=== PATIENT | female | born 1985 | race Caucasian/White ===

== ENCOUNTER 2017-11-04 06:35 | Inpatient (IN) | payer OTHER ==
[2017-11-04] MEDS ORDERED: Oxytocin 30 UNIT 30 UNITS/500 ML BAG IV ONE ×2 (07:02→08:27)
[2017-11-04] MEDS: Lactated Ringer's 1,000 ML IV SCH ×2 (08:00→19:33)
[2017-11-04 08:35] LABS: BASO % 0.4 % (0.0-2.0); EOS # 0.1 K/uL (0.0-0.7); HEMOGLOBIN 13.4 g/dL (11.0-16.0); LYMPH # 1.9 K/uL (1.0-4.3); LYMPH % 32.2 % (20.0-40.0); MEAN CELL VOLUME 94.5 fL (81.0-99.0); MEAN CORPUSCULAR HEMOGLOBIN 32.6 pg (27.0-31.0); MEAN CORPUSCULAR HGB CONC 34.4 g/dL (33.0-37.0); MEAN PLATELET VOLUME 14.3 fL (7.2-11.7); MONO # 0.6 K/uL (0.0-0.8); MONO % 9.5 % (0.0-10.0); NEUT # 3.3 K/uL (1.8-7.0); NEUT % 55.9 % (50.0-75.0); NRBC % 0.1 % (0.0-2.0); RBC 4.11 Mil/uL (3.80-5.20); RED CELL DISTRIBUTION WIDTH 13.1 % (11.5-14.5); WHITE BLOOD COUNT 5.9 K/uL (4.8-10.8)
--- NOTE | 2017-11-04 10:07 | OBHP ---
Datetime: 11/04/2017 10:00 IP Adm Impression: Term, intrauterine IP Admit Plan: Admit to unit Admit Comment, IP Provider: @ 40.3wks GA YUNIOR 11/01/17 c/o ctx pain that started last night nowe every 5 min incresaign intesnty and freqeuncy, 10/15. 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 PMH: Denies PSH Denies FHX: non contbiyuory MEDS: PNV NKDA SHX: negative x 3 A/P @ 40.3 wks GA augmentation of labor with oligohydramnios admit to L+D npo, ivf admissin labs conto to cand emf analgesia prn pritiocn as per protocol Pelvic Type - PN: Adequate Extremities - PN: Normal Abdomen - PN: Normal Back - PN: Normal Breast - PN: Normal Lungs - PN: Normal Heart - PN: Normal Thyroid - PN: Normal Neurologic - PN: Normal HEENT - PN: Normal General - PN: Normal Presentation-Admit: Vertex Membranes, Provider: Intact Contraction Comments Provider: q 5 min Comments, ACOG Physical Exam: Bedside US vtx lorraine 4.7cm Gestation - Est Wks by US: 40.3 IP Hx Assessment: The History has been Reviewed and is Current EGA AdmitDate IP: 40.3 Vital Signs Provider: Reviewed; Within Normal Limits IP Indication for Induction: Oligohydramnios IP Chief Complaint: Uterine contractions NICHD Decel Fetus A IP Provider: None Dilatation, Provider: 3-4 Effacement, Provider: 60 Station, Provider: -2 Genitourinary Exam: Normal DTRs - PN: Normal
[2017-11-04 10:31] LABS: SQUAMOUS EPITHIAL < 1 /hpf (0-5); URINE BACTERIA RARE (<OCC); URINE BILIRUBIN NEGATIVE (NEGATIVE); URINE BLOOD NEGATIVE (NEGATIVE); URINE CLARITY Clear (Clear); URINE COLOR Colorless (YELLOW); URINE GLUCOSE (UA) NORMAL (Normal); URINE LEUKOCYTE ESTERASE NEG Leu/uL (Negative); URINE PROTEIN NEGATIVE (NEGATIVE); URINE UROBILINOGEN NORMAL mg/dL (0.2-1.0)
[2017-11-04 13:37] LABS: BASO % 0.3 % (0.0-2.0); EOS % 0.2 % (0.0-4.0); HEMOGLOBIN 14.5 g/dL (11.0-16.0); LYMPH # 2.2 K/uL (1.0-4.3); MEAN CELL VOLUME 94.7 fL (81.0-99.0); MEAN CORPUSCULAR HEMOGLOBIN 32.5 pg (27.0-31.0); MEAN CORPUSCULAR HGB CONC 34.4 g/dL (33.0-37.0); MEAN PLATELET VOLUME 13.9 fL (7.2-11.7); MONO # 0.6 K/uL (0.0-0.8); MONO % 5.6 % (0.0-10.0); NEUT # 7.3 K/uL (1.8-7.0); NEUT % 71.9 % (50.0-75.0); NRBC % 0.1 % (0.0-2.0); RBC 4.45 Mil/uL (3.80-5.20)
[2017-11-04 13:46] LABS: WHITE BLOOD COUNT 10.2 K/uL (4.8-10.8)
[2017-11-04] MEDS ORDERED: Propofol 10 mg/ml Inj (20 ML) ONE (14:02)
[2017-11-04] MEDS ORDERED: ceFAZolin IV 2 gm in Dextrose 2 GM/50 ML BAG IVPB ONE ×2 (14:05→14:08)
[2017-11-04] MEDS ORDERED: Sodium Citrate/Citric Acid 15 ml Sol PO STA (14:06)
[2017-11-04] MEDS ORDERED: Sodium Citrate/Citric Acid 15 ml Sol ONE (14:08)
[2017-11-04] MEDS ORDERED: Succinylcholine Chloride 20 mg/ml Syr (5 ml) IV ONE (14:09)
[2017-11-04] MEDS ORDERED: Oxytocin 20 units in LR 2,000 ML IV ONE (14:11)
--- NOTE | 2017-11-04 14:20 | OBPN ---
Datetime: 11/04/2017 14:11 IP Progress Impression: Normal progression of labor; Non-reassuring heart rate IP Progress Plan: Continue present management Membranes, Provider: Ruptured FHR - Baseline A Provider: 130 Gestation - Est Wks by US: 40.3 Presentation-Admit: Vertex IP Progress Note Comment: Pt seen and examined VSS EMF: 130/mod ag prlonged decleration 2-6 min TOOC: q 2-3 min A/P @ 40+ wks in acibve labor iwth Cat II scalp stimualtin left latera ldebucubit ivh oxygen possibel cesearen section dw patient Vital Signs Provider: Reviewed; Within Normal Limits FHR Category Provider Fetus A: Category II NICHD Variability Prov Fetus A: Moderate 6-25bpm Dilatation, Provider: 9 Effacement, Provider: 100 Station, Provider: 0 NICHD Decel Fetus A IP Provider: Late; Prolonged Datetime: 11/04/2017 10:00 Contraction Comments Provider: q 5 min
--- NOTE | 2017-11-04 16:41 | OBPN ---
Datetime: 11/04/2017 16:37 IP Progress Plan: Continue present management Membranes, Provider: Ruptured FHR - Baseline A Provider: 125 IP Progress Note Comment: pt seen adn examiend for progression of labor pitoicn dc due ot categoary ii pticon retarted conttoc oand emf Vital Signs Provider: Reviewed; Within Normal Limits FHR Category Provider Fetus A: Category I NICHD Variability Prov Fetus A: Moderate 6-25bpm Dilatation, Provider: 9 Effacement, Provider: 100 Station, Provider: 0 NICHD Decel Fetus A IP Provider: None
[2017-11-04] MEDS ORDERED: Oxytocin 10 Units/ml Inj ONE (17:40)
[2017-11-04] MEDS ORDERED: Morphine 4 MG/ML VIAL ONE (18:15)
[2017-11-04] MEDS ORDERED: Oxycodone/Acetaminophen 5/325 mg Tab PO PRN (18:28)
--- NOTE | 2017-11-04 18:36 | OBDS ---
DELIVERY PERSONNEL Delivery Doctor: Lupis Bonilla MD Scrub Nurse: Dejah Vang Machine Stitcher: Jackie Winters RN Resident: Ness Nunez MATERNAL INFORMATION Delivery Anesthesia: General Medications in Delivery: Pitocin 40 units in 1000LR Estimated Blood Loss (ml): 800 Placenta Cultured: Yes Maternal Complications: None Provider Comments: primary low transvesre ceseare section non reassring heart tracing/ bradycardia live male agpars 9,9 weight of 7bl 5 ounces pediatricin present for dleiveyr LABOR SUMMARY EDC: 11/01/2017 00:00 No. Babies in Womb: 1 Attempted: No Labor Anesthesia: None LABOR INFORMATION Reason for Induction: Not Applicable Onset of Labor: 11/04/2017 07:25 Oxytocin: Augmentation Group B Beta Strep: Negative Antibiotics # of Doses: 1 Antibiotics Time of Last Dose: 1728 Steroids Given: None Reason Steroids Not Administered: Not Applicable MEMBRANES Membranes Rupture Method: Artificial Rupture of Membranes: 11/04/2017 10:40 Length of Rupture (hrs): 6.93 Amniotic Fluid Color: Clear Amniotic Fluid Amount: Scant Amniotic Fluid Odor: Normal STAGES OF LABOR Stage 3 hrs: 0 Stage 3 min: 1 Total Time in Labor hrs: 10 Total Time in Labor min: 12 CSECTION DELIVERY Primary Indication: Nonreassuring Status CSection Urgency: Emergency CSection Incidence: Primary Labor: Labor Elective: Nonelective CSection Incision: Lower Uterine Transverse BABY A INFORMATION Infant Delivery Date/Time: 11/04/2017 17:36 Method of Delivery: Born in Route : No : N/A Forceps: N/A Vacuum Extraction: N/A Shoulder Dystocia : No SHOULDER DYSTOCIA BABY A Infant Delivery Date/Time: 11/04/2017 17:36 PRESENTATION/POSITION BABY A Presentation: Cephalic Cephalic Presentation: Vertex Vertex Position: Right Occipital Posterior Breech Presentation: N/A PLACENTA INFORMATION BABY A Placenta Delivery Time : 11/04/2017 17:37 Placenta Method of Delivery: Manual Removal Placenta Status: Delivered SCORES BABY A Heart Rate 1 min: >100 bpm Resp Effort 1 min: Good Cry Reflex Irritability 1 min: Cough or Sneeze or Pulls Away Muscle Tone 1 min: Active Motion Color 1 min: Body Currie, Extremities Blue Resuscitation Effort 1 min: Tactile Stimulation SCORE 1 MIN: 9 Heart Rate 5 min: >100 bpm Resp Effort 5 min: Good Cry Reflex Irritability 5 min: Cough or Sneeze or Pulls Away Muscle Tone 5 min: Active Motion Color 5 min: Body Currie, Extremities Blue Resuscitation Effort 5 min: N/A SCORE 5 MIN: 9 INFANT INFORMATION BABY A Gestational Age at Delivery: 40.3 Gestational Status: Post-term Infant Outcome : Liveborn Condition : Stable Infant Sex: Male IDENTIFICATION/MEDS BABY A ID Band Number: [id number] ID Band Location: Left Leg; Left Arm Sensor Applied: Yes Sensor Number: [id number] Sensor Location : Cord Clamp Vitamin K Given : Not Given Erythromycin Given: Not Given WEIGHT/LENGTH BABY A Birthweight (gms): 3310 Weight (lb): 7 Weight (oz): 5 Length Inches: 20.50 Length cms: 52.1 CORD INFORMATION BABY A No. Cord Vessels: 3 Nuchal Cord : Tight nuchal and ARound the body Cord Blood Taken: Yes Suction: Mouth; Nose ASSESSMENT BABY A Infant Complications: None Physical Findings at Delivery: Within Normal Limits Infant Respirations: Appears Normal Aircraft Lay Out Worker/ALS Called : Yes Care By: Transferred To: Nursery
--- NOTE | 2017-11-04 18:50 | PCM.SURG1 ---
Surgeon's Initial Post Op Note - Surgeon's Notes Surgeon: Arabella Bonilla MD Manager Freelance: Manasa Owens MD Type of Anesthesia: General Mask Pre-Operative Diagnosis: Non reassuring heart tracing, bradycardia, term intrauterine Operative Findings: live male infant rop position tight nuchal and body x 1 reduced, apgars 9,9 normal appearing uterus, tubes and ovaries. lieutenant/deputy present for delivery. Dr Lili Owens was surgical assistnat and prestn for entire case and essential in gaingn entry, retraction, epxoure, holding the bladder blade, closing all layers and was present for entire case. Post-Operative Diagnosis: same as above Operation Performed: Primary low transvesre ceseaern section Specimen/Specimens Removed: placenta Estimated Blood Loss: EBL {In ML}: 800 Blood Products Given: N/A Drains Used: No Drains Post-Op Condition: Good Date of Surgery/Procedure: 11/04/17 Time of Surgery/Procedure: 18:00
[2017-11-04] MEDS ORDERED: Morphine 4 MG/ML VIAL IVP PRN (20:00)
[2017-11-04] MEDS: Simethicone 80 mg Chewtab PO SCH (21:42)
--- NOTE | 2017-11-05 00:09 | OBPPN ---
Datetime: 11/05/2017 00:05 PP Pain Prov: Within normal limits PP Nausea Prov: Denies PP Flatus Prov: No PP BM Prov: No PP Breasts Prov: Normal PP Heart Prov: Normal PP Lungs Prov: Normal PP Abdomen/Uterus Prov: Normal PP Lochia Prov: Normal PP Vulva/Perineum Prov: Normal PP CVA Tenderness Prov: Normal PP Extremities Prov: Normal PP C/S Incision Prov: Normal PP Progress Prov: Normal PP Impression Prov: Normal progression PP Plan Prov: Continue present management PP Progress Note Prov: pt seen and examiend reprots pain andc rampign alleviated with precorcet. pt ambuating voiding passing minimal flatus, tolerted regular diet, denies any fever, chills, nasue, vo mitnv, cp, sob. pt isbreat feedign denies any feeling of sadnes or depression. pt denies any lighthea dnes,d izzyness. VSS PE GEN NAD AA ox 3 RESP: CTAB?l CVR: RRR, +S1/S2 ABD: soft, NT, nimally disteneded, no guarding, no reboudn tendnerr, no rigidty, Fundus firm at le humberto of umbilicis INCSION C??DI healing well VE: minimal lochia, non foul smelling EXT: No calf tendnerss b/l, engaitve juan's sign A/P s/p PLTCS POD #1 am labs pain manamgnet bowel regimen encourage ambation and breast feeding Vital Signs Provider PP: Reviewed; Within Normal Limits
[2017-11-05] MEDS: ceFAZolin IV 2 gm in Dextrose 2 GM/50 ML BAG IVPB SCH ×3 (01:34→17:37)
[2017-11-05] MEDS: Lactated Ringer's 1,000 ML IV SCH (01:37)
--- NOTE | 2017-11-05 07:39 | OP ---
PROCEDURE DATE: 11/04/2017 SURGEON: Arabella Bonilla MD SCREED OPERATOR: Lili Owens DO TYPE OF ANESTHESIA: General mask. ANESTHESIOLOGIST: Dr. Wilson PREOPERATIVE DIAGNOSES: Term intrauterine , nonreassuring heart rate with bradycardia. OPERATIVE FINDINGS: A live male , ROP presentation, tight nuchal cord and body x1 reduced, Apgars 9 and 9, normal-appearing uterus, tubes, and ovaries bilaterally. Gastroenterologist present for delivery. Dr. Lili Owens was the surgical corsetier present for the entire case and essential in gaining entry, retraction, exposure, holding the bladder while closing all layers and was present for the entire case. POSTOPERATIVE DIAGNOSIS: Term intrauterine , nonreassuring heart rate with bradycardia. OPERATION PERFORMED: Primary low-transverse section. SPECIMEN REMOVED: Placenta. ESTIMATED BLOOD LOSS: 800 mL. BLOOD PRODUCTS: None. COMPLICATIONS: None. DESCRIPTION OF PROCEDURE: The patient is a G1, P0, who was 40-plus weeks who presented in labor also with oligohydramnios. The patient subsequently was admitted for of labor. The patient progressed, fully dilated and was having decelerations. The patient was given oxygen, left lateral resuscitation with Pitocin. The patient had a prolonged deceleration and also bradycardia. Risks, benefits, alternatives, and indications of primary low transverse section were discussed with the patient. The patient was taken to operating room where she was given general anesthesia. The patient was then prepped and draped in the usual normal sterile fashion. The patient was given preoperative prophylactic antibiotic. Pfannenstiel skin incision was made with a scalpel, carried down to the underlying fascia with the scalpel. The rectus muscles were then bluntly in the midline. The peritoneum was identified, entered in the clear space. The incision was extended laterally and superiorly until there was good visualization of the bladder. The lower uterine segment was incised in transverse fashion with the use of the scalpel. The incision was extended laterally bluntly. The surgeon's hand entered the uterine cavity. The infant's head was brought up through the uterine incision. The 's head was delivered atraumatically followed by delivery of the shoulders, followed by the body. The umbilical cord was tight and reduced. Oral and nasal passages were bulb suctioned. The umbilical cord was clamped and cut. The baby was handed off to the awaiting catering sales manager. Cord blood and cord gases were collected and sent x2. The placenta was then delivered manually. The uterus was then exteriorized and was cleared of all clots and debris. The uterine incision was repaired with 0 Vicryl in a running continuous locked fashion. A second layer of the same suture was used to close the uterus in a running imbricating manner. Good hemostasis was noted at the uterine incision site. There was normal tubes and ovaries bilaterally. The uterus was then returned into the abdomen. Paracolic gutters were cleared of all clots and debris. The peritoneum was reapproximated and closed with 2-0 chromic in a continuous fashion. The rectus was reapproximated and closed with 2-0 chromic in an interrupted manner. The fascia was reapproximated and closed with 0 Vicryl in a running continuous fashion. The subcutaneous was closed with 2-0 plain in an interrupted manner, and the skin was re-approximated and closed with 3-0 Monocryl in running subcuticular fashion. At the end of the procedure, all needle, sponge, and instrument counts were noted as correct x2. The patient tolerated the procedure well and was transferred to the recovery room in stable condition. Arabella Bonilla MD
[2017-11-05] MEDS: Oxycodone/Acetaminophen 5/325 mg Tab PO PRN ×2 (07:40→15:54)
[2017-11-05 07:47] LABS: BASO # 0.1 K/uL (0.0-0.2); BASO % 0.6 % (0.0-2.0); EOS % 0.1 % (0.0-4.0); LYMPH # 1.4 K/uL (1.0-4.3); LYMPH % 11.3 % (20.0-40.0); MEAN CELL VOLUME 94.3 fL (81.0-99.0); MEAN CORPUSCULAR HEMOGLOBIN 32.4 pg (27.0-31.0); MEAN CORPUSCULAR HGB CONC 34.4 g/dL (33.0-37.0); MEAN PLATELET VOLUME 13.9 fL (7.2-11.7); MONO # 1.1 K/uL (0.0-0.8); MONO % 8.5 % (0.0-10.0); NEUT # 10.1 K/uL (1.8-7.0); NEUT % 79.5 % (50.0-75.0); RBC 3.6 Mil/uL (3.80-5.20); WHITE BLOOD COUNT 12.7 K/uL (4.8-10.8)
[2017-11-05 08:03] LABS: HEMOGLOBIN 11.7 g/dL (11.0-16.0)
[2017-11-05] MEDS: Simethicone 80 mg Chewtab PO SCH ×4 (09:25→21:57)
[2017-11-05] MEDS: Prenatal Multivit/Folic Acid/Iron Tab PO SCH (09:25)
[2017-11-05 17:08] LABS: BASO % 0.3 % (0.0-2.0); EOS % 0.2 % (0.0-4.0); HEMOGLOBIN 11.7 g/dL (11.0-16.0); LYMPH # 1.8 K/uL (1.0-4.3); LYMPH % 13.6 % (20.0-40.0); MEAN CORPUSCULAR HGB CONC 33.7 g/dL (33.0-37.0); MEAN PLATELET VOLUME 11.8 fL (7.2-11.7); MONO # 1.2 K/uL (0.0-0.8); MONO % 8.5 % (0.0-10.0); NEUT # 10.5 K/uL (1.8-7.0); NEUT % 77.4 % (50.0-75.0); NRBC % 0.1 % (0.0-2.0); RBC 3.65 Mil/uL (3.80-5.20); RED CELL DISTRIBUTION WIDTH 13.1 % (11.5-14.5); WHITE BLOOD COUNT 13.5 K/uL (4.8-10.8)
[2017-11-05] MEDS ORDERED: Bisacodyl 5mg EC Tab PO ONE (18:29)
[2017-11-06] MEDS: Oxycodone/Acetaminophen 5/325 mg Tab PO PRN (07:43)
[2017-11-06] MEDS: Prenatal Multivit/Folic Acid/Iron Tab PO SCH (09:46)
[2017-11-06] MEDS: Simethicone 80 mg Chewtab PO SCH ×4 (09:46→21:12)
[2017-11-06 16:47] VITALS: O2SAT 97
[2017-11-07 10:12] VITALS: BP 101/67; PULSE 76; RESP 18
[2017-11-07] MEDS: Prenatal Multivit/Folic Acid/Iron Tab PO SCH (10:21)
[2017-11-07] MEDS: Simethicone 80 mg Chewtab PO SCH (10:22)
--- NOTE | 2017-11-07 11:13 | OBDCSUM ---
Datetime: 11/07/2017 11:11 Discharged to, Provider: Home Follow up at, Provider: Dr Bonilla Disch Instr Activity: Normal activity Disch Instr Diet: Regular Discharge Instructions, Provider: Routine instructions given Discharge Diagnosis, Provider: Term Delivered Discharge Time: 11/07/2017 11:11 Follow up in weeks, Provider: 1 week Disch Referrals: None Contraception discussed, Prov: Yes Disch Activity Restrictions: No sexual activity; Nothing in vagina - Harman, tampons, douche Contraception after Delivery: Not Planning to Use
--- NOTE | 2017-11-07 11:13 | OBPPN ---
Datetime: 11/07/2017 11:09 PP Pain Prov: Within normal limits PP Nausea Prov: Denies PP Flatus Prov: Yes PP BM Prov: Yes PP Breasts Prov: Normal PP Heart Prov: Normal PP Lungs Prov: Normal PP Abdomen/Uterus Prov: Normal PP Lochia Prov: Normal PP Vulva/Perineum Prov: Normal PP CVA Tenderness Prov: Normal PP Extremities Prov: Normal PP C/S Incision Prov: Normal PP Progress Prov: Normal PP Impression Prov: Normal progression PP Plan Prov: Discharge PP Progress Note Prov: pt seen and examiend reprots pain andc rampign alleviated with medication. p t ambuating voiding passing flatus, tolerted regular diet, denies any fever, chills, nasue, vomitnv, cp, sob. pt isbreat feedign denies any feeling of sadnes or depression. pt denies any lightheadnes,d izzyness. VSS PE GEN NAD AA ox 3 RESP: CTAB?l CVR: RRR, +S1/S2 ABD: soft, NT, ND, +BS no guarding, no reboudn tendnerr, no rigidty, Fundus firm below level of um bilicis INCSION C//DI healing well VE: minimal lochia, non foul smelling EXT: No calf tendnerss b/l, engaitve juan's sign A/P s/p PLTCS POD #3 dc home rto 1 week precautins given IP PP Procedures: None Vital Signs Provider PP: Reviewed; Within Normal Limits
[2017-11-07 19:13] VITALS: TEMP 98.2
== END 2017-11-07 14:00 | disposition home or self-care (01) | DRG 766 ==
LOC: C.EROB 06:35 → C.4D 06:46 → UNDOADMIN 06:46 → C.4D 07:02 → C.4M 21:12
PROVIDERS: ADMIT Obstetrics & Gynecology; ATTEND Obstetrics & Gynecology
PROC: 10D00Z1 Extraction of Products of Conception, Low, Open Approach (ICD-10-PCS; principal; 2017-11-04)
PROC: 3E0P7VZ Introduction of Hormone into Female Reproductive, Via Natural or Artificial Opening (ICD-10-PCS; 2017-11-04)
DX: O41.03X0 Oligohydramnios, third trimester, not applicable or unspecified (principal); O76 Abnormality in fetal heart rate and rhythm complicating labor and delivery; O48.0 Post-term pregnancy; O69.1XX0 Labor and delivery complicated by cord around neck, with compression, not applicable or unspecified; Z3A.40 40 weeks gestation of pregnancy; Z37.0 Single live birth